=== PATIENT | male | born 1970 | race Caucasian/White ===

== ENCOUNTER 2018-01-03 00:23 | Day surgery (SDC) | payer BC ==
[2018-01-03] VITALS (9 sets, daily range): BP systolic 104–139; BP diastolic 84–103
[~2018-01-03] VITALS: Ht 167.6 cm; Wt 78.0 kg
[~2018-01-03 00:23] MED LIST: ACET500T68 PO; CALC-515 PO; D ME PO; IBUP-56 PO; OMEP-218 PO; ZOL5 PO
[2018-01-03] MEDS: NORMOSOL R SOLN(*) 1000 ML BAG 1,000 ML IV PRN ×2 (07:58→11:00)
[2018-01-03] MEDS ORDERED: CLINDAMYCIN(*) 600 MG/NS 50 ML 50 ML IVPB ONE (08:25)
[2018-01-03] MEDS ORDERED: LIDOCAINE/SOD BICARB 8.4% SYR ID ONE (08:25)
[2018-01-03] MEDS ORDERED: MIDAZOLAM 2 MG/2 ML VIAL IVP PRN (08:25)
[2018-01-03] MEDS ORDERED: FAMOTIDINE 20 MG TAB PO ONE (08:25)
[2018-01-03] MEDS ORDERED: ONDANSETRON 4 MG/2 ML VIAL ONE (08:41)
[2018-01-03] MEDS ORDERED: LIDOCAINE MPF 1% 5 ML VIAL ONE (08:41)
[2018-01-03] MEDS ORDERED: ROCURONIUM BROM 10 MG/ML 10 ML ONE (08:41)
[2018-01-03] MEDS ORDERED: DEXAMETHASONE SOD PHOS 10MG/ML ONE (08:41)
[2018-01-03] MEDS ORDERED: fentaNYL CITR 100 MCG/2 ML AMP ONE ×4 (08:41→10:57)
[2018-01-03] MEDS ORDERED: PROPOFOL EMUL(*) 10MG/ML 20 ML 20 ML ONE (08:41)
[2018-01-03] MEDS ORDERED: KETAMINE HCL-NS 50 MG/5 ML SYR ONE (08:42)
[2018-01-03] MEDS ORDERED: BACITRACIN OINT 15 GM TUBE TP ONE (09:05)
[2018-01-03] MEDS ORDERED: NS(*) 0.9% 250 ML BAG 250 ML ONE (09:06)
[2018-01-03] MEDS ORDERED: LIDO/EPI 1% MDV 1:100,000 20ML INFIL ONE (09:06)
[2018-01-03] MEDS ORDERED: OXYMETAZOLINE SPRAY 15 ML BTL ONE (09:06)
[2018-01-03] MEDS ORDERED: GLYCOPYRROLATE 1 MG/5 ML INJ ONE (09:49)
[2018-01-03] MEDS ORDERED: HYDR-4309 PO (10:33)
[2018-01-03] MEDS ORDERED: AZIT-17 PO (10:33)
[2018-01-03] MEDS ORDERED: ACETAMINOPHEN(*)1000 MG/100 ML 100 ML IVPB ONE (10:41)
[2018-01-03] MEDS ORDERED: APAP/HYDROCODONE 325/5 TAB PO ONE (11:35)
--- NOTE | 2018-01-03 11:56 | OPERATIVE REPORT 1 ---
EVENT DATE: January 03, 2018 SURGEON: Maury Avila M.D. ANESTHESIOLOGIST: Brandon Reece MD ANESTHESIA: LMA. PREOPERATIVE DIAGNOSIS 1. Right infranasal synechiae. 2. Septal deviation. 3. Bilateral inferior turbinate hypertrophy. POSTOPERATIVE DIAGNOSIS 1. Right infranasal synechiae. 2. Septal deviation. 3. Bilateral inferior turbinate hypertrophy. PROCEDURE PERFORMED 1. Lysis of right intranasal synechiae. 2. Revision septoplasty. 3. Reduction of bilateral inferior turbinates. INDICATIONS FOR PROCEDURE Please refer to preoperative note. DESCRIPTION OF PROCEDURE The patient was positively identified in the preoperative area. He was accompanied there by his parents. Risks and benefits were explained including, but not limited to, bleeding, infection, nasoseptal perforation and those associated with anesthesia. They acknowledged understanding of those risks. He was then brought back to the operative suite and laid supine on the operating table and anesthesia was administered. Once asleep, the patient was positioned, prepped and draped in the usual sterile fashion. I initially decongested the nose by injecting approximately 10 cc of 1% lidocaine with epinephrine to the bilateral anterior nasoseptal mucosa and along the face of the bilateral inferior turbinates. Both nasal cavities were subsequently packed with cottonoids containing Afrin solution. A nasal endoscopy was performed. This was notable for intranasal synechiae on the right between the septum and the inferior turbinate and a posterior nasal septal deviation to the right. I began the case by lysing the intranasal synechiae on the right. Approximately 1 cc of 1% lidocaine with epinephrine was injected into these. These were sharply divided with an endoscopic scissor. I then made an incision on the right posteriorly into the nasal septal mucosa at the area of the deviation. Submucosal flaps were elevated bilaterally and the deviated portion of the nasoseptal bone was removed. Both inferior turbinates were reduced with the microdebrider. Suction cautery was utilized for hemostasis. Bilateral nasal septal splints were placed and secured to the columellar suture. The patient was then returned to anesthesia for emergence. ESTIMATED BLOOD LOSS 25 mL. COMPLICATIONS None. MTDD
[2018-01-03] MEDS ORDERED: OXYMETAZOLINE 0.05% 30 ML BTL ONE (12:45)
[2018-01-07] MEDS ORDERED: HYDR-4309 PO (15:52)
== END 2018-01-03 11:21 | disposition home or self-care (01) ==
LOC: OR 00:23
PROVIDERS: ATTEND Otolaryngology
DX: J34.2 Deviated nasal septum (principal); J34.3 Hypertrophy of nasal turbinates
CPT/HCPCS: 30520; 30560; 30801; J0131; J1100; J2001; J2405; J2704; J3010; J3490; J7050